=== PATIENT | female | born 1940 | race Caucasian/White ===

== ENCOUNTER 2017-01-08 20:35 | Inpatient (IN) | payer MEDICARE ==
[~2017-01-08] VITALS: Ht 167.6 cm; Wt 48.5 kg
[~2017-01-08 20:35] MED LIST: ADVAIR DIS14 PUFF/IN INH; AMBIEN5 MG PO; FLONASE16 GM NASBOTH; GLUCOTROL5 MG PO; HYDROCHLOROTH12.5 MG PO; IPRAT-ALBUT 0.5-3 ML NEB; LEXAPRO10 MG PO; LISINOPRIL-HCT1 EAC1 PO; LOTRISONE15 GM TOP; NITROSTAT0.4 MG SL; PRINIVIL20 MG PO; PROAIR HFA8.5 GM INH; TENORMIN50 MG PO; ZOCOR20 MG PO
[2017-01-08] MEDS ORDERED: ASPIRIN81 MG PO (21:09)
[2017-01-08] MEDS ORDERED: ZYRTEC10 MG PO (21:11)
[2017-01-08] MEDS ORDERED: ANTIVERT12.5 MG PO (21:13)
[2017-01-08] MEDS ORDERED: ULTRAM50 MG PO ×2 (21:16→21:17)
[2017-01-10] MEDS ORDERED: LEVAQUIN500 MG PO (08:19)
[2017-01-10] MEDS ORDERED: MEDROL DOSE PACK (08:50)
== END 2017-01-10 09:33 | disposition short-term general hospital (02) | DRG 871 ==
LOC: ER 20:35 → IP 22:35
PROVIDERS: ADMIT Family Medicine
PROC: 3E0F7GC Introduction of Other Therapeutic Substance into Respiratory Tract, Via Natural or Artificial Opening (ICD-10-PCS; principal; 2017-01-08)
DX: A41.9 Sepsis, unspecified organism (principal); J18.9 Pneumonia, unspecified organism; J44.0 Chronic obstructive pulmonary disease with (acute) lower respiratory infection; E87.1 Hypo-osmolality and hyponatremia; F32.9 Major depressive disorder, single episode, unspecified; E78.5 Hyperlipidemia, unspecified; I10 Essential (primary) hypertension; G47.00 Insomnia, unspecified; R73.9 Hyperglycemia, unspecified; R91.1 Solitary pulmonary nodule; Z87.891 Personal history of nicotine dependence
CPT/HCPCS: A9150; J0692; J1650; J1956; J2060; J2930; J8499

== ENCOUNTER 2017-01-27 15:58 | Emergency (ER) | payer MEDICARE ==
[~2017-01-27] VITALS: Ht 165.1 cm; Wt 49.0 kg
[~2017-01-27 15:58] MED LIST changes: +ANTIVERT12.5 MG PO; +ASPIRIN81 MG PO; +LEVAQUIN500 MG PO; +MEDROL DOSE PACK; +ULTRAM50 MG PO; +ZYRTEC10 MG PO
== END 2017-01-27 17:30 | disposition short-term general hospital (02) ==
LOC: ER 15:58
DX: J44.1 Chronic obstructive pulmonary disease with (acute) exacerbation (principal); E78.5 Hyperlipidemia, unspecified; I10 Essential (primary) hypertension
CPT/HCPCS: J2930